=== PATIENT | female | born 1990 | race Caucasian/White ===

== ENCOUNTER 2017-05-20 14:13 | Emergency (ER) | payer BC | END 2017-05-20 14:15 | disposition home or self-care (01) | LOC: ER 14:13 | PROC: 3E0T3BZ Introduction of Anesthetic Agent into Peripheral Nerves and Plexi, Percutaneous Approach (ICD-10-PCS; principal; 2017-05-20) | DX: K04.7 Periapical abscess without sinus (principal); Z88.1 Allergy status to other antibiotic agents | CPT/HCPCS: 99282 ==